=== PATIENT | male | born 1945 | race Caucasian/White ===

== ENCOUNTER 2016-09-04 09:18 | Observation (INO) ==
[2016-09-04] MEDS ORDERED: ONDANSETRON 4 MG/2 ML VIAL IV STA (10:09)
[2016-09-04] MEDS ORDERED: MORPHINE 2 MG/1 ML SYRINGE IV STA (10:09)
[2016-09-04] MEDS ORDERED: NITROGLYCERIN 2% OINT 1 INCH/GM PACK TOP STA (10:09)
[2016-09-04] MEDS ORDERED: SODIUM CHLORIDE 0.9% 500 ML IV STA (10:09)
[2016-09-04] MEDS ORDERED: ALUM/MAG/SIMETH/LIDO VISC 1:1 30 ML BOTTLE PO STA (10:09)
[2016-09-04] MEDS ORDERED: ASPIRIN 325 MG TABLET PO STA (10:09)
--- NOTE | 2016-09-04 10:13 | EKG Report ---
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
[2016-09-04] MEDS ORDERED: ALUM/MAG/SIMETH/LIDO VISC 1:1 30 ML BOTTLE PO ONE (10:17)
[2016-09-04] MEDS ORDERED: NITROGLYCERIN 2% OINT 1 INCH/GM PACK TOP ONE (10:17)
[2016-09-04] MEDS ORDERED: ASPIRIN 325 MG TABLET ONE (10:17)
[2016-09-04] MEDS ORDERED: ONDANSETRON 4 MG/2 ML VIAL ONE (10:17)
[2016-09-04 10:26] LABS: Basophils % 0.3 % (0.0-0.8); Eosinophils % 0.3 % (0.00-10.9); Hematocrit 46.8 VOL% (42.0-52.0); Hemoglobin 15.8 GM/DL (14.0-18.0); Immature Granulocytes % 0.6 %; Immature Granulocytes Absolute 0.04 #; Lymphocytes # 0.5 10*3/uL (1.4-4.0); Mean Corpuscular HGB Conc 33.8 GM/DL (32-36); Mean Corpuscular Hemoglobin 29 PG (27-34); Mean Corpuscular Volume 85.4 FL (87-102); Mean Platelet Volume 10.3 FL (9.6-12.0); Monocytes # 0.4 10*3/uL (0.11-0.8); Monocytes % 6.2 % (1.7-12.7); Neutrophils # 5.5 10*3/uL (1.4-7.4); Neutrophils % 84.6 % (38.7-73.9); Platelet Count 132 T/CUMM (130-400); Red Blood Count 5.48 MC/CUMM (3.8-5.5); Red Cell Distribution Width 12.2 % (9.3-17.3); White Blood Count 6.5 T/CUMM (4-12)
--- NOTE | 2016-09-04 10:32 | XRay Report ---
Referring Physician: Ricky Stahl Exam: XR chest 1V portable Date: September 04, 2016 at 10:19 AM Reason: Chest pain Comparison: None Findings: The cardiac silhouette is upper normal in size, and there is elevation of the right hemidiaphragm. Mild atelectasis is also seen at the right lung base. No pneumothorax or pleural effusion is identified. No acute osseous process is seen. Impression: The right hemidiaphragm is elevated, and there is mild atelectasis at the right lung base. PROCEDURE INTERPRETED AT [facility] DEPARTMENT OF RADIOLOGY Final Report Signed by: Dr. Miles Crisostomo
[2016-09-04 10:34] LABS: INR 1.2; PT Patient Result 12.4 SECS
[2016-09-04 10:51] LABS: Bilirubin,Total 1.3 MG/DL (0.2-1.0); Calcium 8.2 MG/DL (8.5-10.1); Magnesium 1.9 MG/DL (1.8-2.4); Osmolality,Calculated 280.7 MOS/KG (273-304); Potassium 3.9 MMOL/L (3.5-5.1); Total Protein 7.2 G/DL (6.4-8.3)
--- NOTE | 2016-09-04 11:04 | Emergency Department Note ---
Ivette Rivas Gwan, am scribing for, and in the presence of, Ricky Stahl MD 10 :26. Maribeth Rivas Charles R, MD, personally performed the services described in this documentation, ascribed by Snehal Steele in my presence, and it is both accurate and complete . Arrival - Arrival Chief Complaint: Chest Pain Stated Complaint: chest pain & nausea ED Nursing Triage Note: Pt states that he is having midsternal chest pain with SOB and nausea onset last night - pt states that he thinks that he got too hot yesterday while working in his garden Mode of Arrival: Ambulatory Limitations: No Limitations Source: Patient, Significant other, Old Records Reviewed, RN Notes Reviewed Time Seen by Provider: 09/04/16 10:01 - History of Present Illness HPI Narrative: Pt is a 71 y/o male, with a hx of Bronchitis Cyst and Chloecystectomy, who present to the ED for further evaluation of midsternal chest pain and nausea with an onset last night. Patient continued to note that he has also been having a decrease in appetite and fluid intake. He stated that he his chest pain began last night after he began to lay down for bed. Patient then said that when he woke up this morning his chest pain was resolved but he had generalized weakness, nausea and has a APARICIO prompting his visit to the ED for further evaluation. Patient confirmed that his PCP is Dr. Cline in [place], that he had a stress test performed by Dr. Roth that resulted in him receiving a heart cath due to 30% blockage and that he is followed by Dr. Levon Nunez due to prostate problems. He denies any abd pain. No other problems/complaints reported in ED. Onset (ago): hour(s) Consistency: constant Severity: moderate Allergies/Adverse Reactions: Allergies Allergy/AdvReac Type Severity Reaction Status Date / Time IVP DYE Allergy Intermediate ITCHING Uncoded 01/16/16 06:50 Home Medications: Home Medications Medication Instructions Recorded Confirmed Type Ezetimibe [Zetia] 10 mg PO BEDTIME 01/15/16 09/04/16 History Levothyroxine Tab [Synthroid Tab] 88 mcg PO QAM 01/15/16 09/04/16 History Simvastatin 40 mg PO BEDTIME 01/15/16 09/04/16 History Tamsulosin [Flomax] 0.4 mg PO BID 01/15/16 09/04/16 History sitaGLIPtin [Januvia] 50 tablet PO QAM 01/15/16 09/04/16 History Azithromycin 250 mg PO MOWEFR 09/04/16 09/04/16 History Fenofibrate 160 mg PO QPM 09/04/16 09/04/16 History Review of System - Review of System 12 point system: reviewed and no additional remarkable complaints except as stated - Review of System Constitutional: Present: as per HPI, other (decreased appetite; decreased fluid intake ) Eyes: Absent: discharge, pain Head/Ears/Nose/Throat: Absent: earache Respiratory: Absent: cough Cardiovascular: Present: chest pain Gastrointestinal: Present: as per HPI, nausea. 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) Endocrine: History of: Diabetes Mellitus (NIDDM) Respiratory: History of: Respiratory Problems (SOB ABNORMAL CT) Genitourinary: History of: Prostate Problems (BPH) Gastrointestinal: History of: GERD Musculoskeletal: History of: Back/Neck Problems - Surgical History Abdominal Surgeries: Surgical HX of: Abdominal Surgery, Appendectomy, Cholecystectomy, Colonoscopy, EGD Reproductive Surgeries: Surgical HX of;: Genitourinary Surgery, Prostate Surgery - Family History Family History: Reports;: Family Diabetes (2 BROTHERS DAD), Family Stroke (MOM) - Social History Smoking Status: Never smoker Frequency of Alcohol Use: None Type of Drug Use: None Exam Vital Signs: Vital Signs Temperature 98.1 F 09/04/16 10:30 Pulse Rate 92 H 09/04/16 10:30 Respiratory Rate 20 09/04/16 10:30 Blood Pressure 123/74 09/04/16 10:30 O2 Sat by Pulse Oximetry 95 09/04/16 10:30 - General General appearance: alert, in no apparent distress - Head Head exam: Present: atraumatic, normocephalic - Eye Eye exam: Present: normal appearance, PERRL, EOMI - ENT ENT exam: Present: normal oropharynx, mucous membranes moist, TM's normal bilaterally, normal external ear exam - Neck Neck exam: Present: full ROM, trachea midline. Absent: tenderness, meningismus , lymphadenopathy, thyromegaly - Chest Chest inspection: Present: symmetric chest wall rise. Absent: tenderness - Respiratory Respiratory exam: Present: rhonchi (bilaterally) - Cardiovascular Cardiovascular exam: Present: regular rate, normal rhythm, normal heart sounds. Absent: murmur, rubs, gallop - Abdominal Exam Abdominal exam: Present: soft, normal bowel sounds. Absent: distention, tenderness, guarding, rebound - Extremities Exam Extremities exam: Present: full ROM, other (+1 bilateral lower extremties) - Back Exam Back exam: Present: full ROM. Absent: tenderness - Neurological Exam Neurological exam: Present: alert, oriented X3, CN II-XII intact. Absent: motor sensory deficit - Psychiatric Psychiatric exam: Present: normal affect, normal mood - Skin Skin exam: Present: warm, dry, intact, normal color Course - Consultations Consultation #1: Hospitalist will admit patient Time: 11:02 Results - Labs CBC & BMP: 09/04/16 10:09 09/04/16 10:09 Lab Results: I have reviewed the patients labs Labs: Laboratory Tests 09/04/16 09/04/16 09/04/16 10:09 10:09 10:09 WBC 6.5 RBC 5.48 Hgb 15.8 Hct 46.8 MCV 85.4 L Plt Count 132 Neut % (Auto) 84.6 H Lymph % (Auto) 8.0 L Lymph # (Auto) 0.5 L INR PT Patient/Control Mix D-Dimer, Quantitative <= 0.5 Sodium 138 Potassium 3.9 Chloride 106 Carbon Dioxide 24 BUN 24 H Creatinine 1.60 H Glucose 130 H Calcium 8.2 L Total Bilirubin 1.30 H Alkaline Phosphatase 43 L Laboratory Tests 09/04/16 09/04/16 10:09 10:09 INR 1.2 PT Patient/Control Mix 12.4 D-Dimer, Quantitative <= 0.5 - Diagnostic Findings Procedure: Chest x-ray: report reviewed by me (The right hemidiaphragm is elevated and ther is mild atelectasis at the right lung base. ) Disposition Clinical Impression: Chest pain, History of bronchiectasis, Acute dyspnea, Generalized weakness, Renal insufficiency Case discussed with: patient, patient's family Disposition: Still a Patient Condition: Stable Time of Disposition: 11:27
--- NOTE | 2016-09-04 11:30 | CT Report ---
Referring physician: Ricky Stahl Exam: CT brain without contrast Date: 09/04/2016 Comparison: None Reason: Headache Technique: Axial images of the head were obtained without the use of contrast. Total DLP was 1012.10 mGy*cm. Findings: No hydrocephalus or midline shift is present. There is no evidence of an acute infarction, recent intracranial hemorrhage or abnormal mass effect. Diffuse cerebral atrophy. The osseous structures appear intact. The mastoid air cells and visualized paranasal sinuses are clear. Impression: No acute intracranial abnormality is identified. The CT exam was performed using one or more of the following dose reduction techniques: Automated exposure control and adjustment of the mA and/or kV according to patient size. PROCEDURE INTERPRETED AT [facility] DEPARTMENT OF RADIOLOGY Final Report Signed by: Dr. Madeline Brink
--- NOTE | 2016-09-04 12:00 | Hospitalist History & Physical ---
Assessment and Plan (1) Acute dyspnea Status: Acute Assessment and plan: Supplement O2 prn. Current Visit: Yes (2) Chest pain Status: Acute Assessment and plan: Admit to monitored bed. Serial troponins order. EKG order. (Repeat in am) Labs in am. Current Visit: Yes (3) Diabetes Status: Acute Assessment and plan: Accuchecks achs. SSI insulin ordered. Hemoglobin A1c in am. Current Visit: Yes History of Present Illness Chief complaint: chest pain History of present illness: Mr. Agustin is a 71 year old male with a history of bronchiectasis, high cholesterol, diabetes, and prostate problems that presented to the ED on today with complaints of chest pain. The patient states he was home working in his garden for a couple hours yesterday when he got really hot and went inside. Pt stated he had a headache and was nauseated but did not vomit. Pt. reports being tired and having a decrease in appetite. Pt. states that he began to have midsternal chest pain with no radiation when he laid down for bed that evening. His is at the bedside and reports patient being feverish at which point she gave him a Tylenol. Pt said that when he woke up this am, the chest pain was gone but the headache persisted and he was weak. Pt. also adds that Dr. Cline in [place] is his PCP. He goes on to add he was evaluated by Dr. Roth many years ago and told he had a blockage that was 30%. No other complaints at this time. The patient will be admitted for observation. Home Medications Medication Instructions Recorded Confirmed Type Ezetimibe [Zetia] 10 mg PO BEDTIME 01/15/16 09/04/16 History Levothyroxine Tab [Synthroid Tab] 88 mcg PO QAM 01/15/16 09/04/16 History Simvastatin 40 mg PO BEDTIME 01/15/16 09/04/16 History Tamsulosin [Flomax] 0.4 mg PO BID 01/15/16 09/04/16 History sitaGLIPtin [Januvia] 50 tablet PO QAM 01/15/16 09/04/16 History Azithromycin 250 mg PO MOWEFR 09/04/16 09/04/16 History Fenofibrate 160 mg PO QPM 09/04/16 09/04/16 History Allergies Allergy/AdvReac Type Severity Reaction Status Date / Time IVP DYE Allergy Intermediate ITCHING Uncoded 01/16/16 06:50 Medical,Surgical,& Family Hx - Medical History Cardio: Comment Only: 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) Endocrine: History of: Diabetes Mellitus (NIDDM) Respiratory: History of: Respiratory Problems (SOB ABNORMAL CT) Genitourinary: History of: Prostate Problems (BPH) Gastrointestinal: History of: GERD Musculoskeletal: History of: Back/Neck Problems - Surgical History Abdominal Surgeries: Surgical HX of: Abdominal Surgery, Appendectomy, Cholecystectomy, Colonoscopy, EGD Reproductive Surgeries: Surgical HX of;: Genitourinary Surgery, Prostate Surgery - Family History Family History: Reports;: Family Diabetes (2 BROTHERS DAD), Family Stroke (MOM) - Social History Smoking Status: Never smoker Frequency of Alcohol Use: None Type of Drug Use: None - Constitutional Constitutional: Present: fatigue, fever(s) (pt. reports fever but did not take temp), headache(s), weakness - EENT Eyes: Present: blurry vision (last night during chest pain episode) Ears: Absent: decreased hearing Nose, mouth and throat: Present: headache(s) - Cardiovascular Cardiovascular: Present: chest pain at rest, dyspnea on exertion. Absent: edema - Respiratory Respiratory: Present: dyspnea on exertion - Gastrointestinal Gastrointestinal: Present: nausea. Absent: abdominal pain, vomiting - Genitourinary Genitourinary: Present: difficulty urinating - Musculoskeletal Musculoskeletal: Absent: limited range of motion - Neurological Neurological: Present: headache(s). Absent: confusion Exam - Constitutional Vitals: Period Temp Pulse Resp BP Sys/Martinez Pulse Ox Last 24 Hr 98.1 F-98.1 F 66-92 15-20 114-125/65-76 94-95 General appearance: no acute distress - Head Head exam: Present: normal inspection, normocephalic - Eye Eye exam: Present: EOMI. Absent: scleral icterus Pupils: Present: WM - Neck Neck exam: Present: normal inspection - Respiratory Respiratory exam: Present: clear to auscultation bilaterally. Absent: wheezes - Cardiovascular Cardiovascular exam: Present: regular rate and rhythm - GI/Abdominal GI/Abdominal exam: Present: normal bowel sounds, soft. Absent: tenderness - Extremities Exam Extremities exam: Present: normal capillary refill, full ROM. Absent: edema - Neurological Exam Neurological exam: Present: alert, oriented X3, normal gait - Psychiatric Psychiatric exam: Present: normal affect, normal mood - Skin Skin exam: Present: normal color, warm, dry Results - Labs CBC & BMP: 09/04/16 10:09 09/04/16 10:09 Lab Results: I have reviewed the past 24 hour labs - EKG EKG results: interpreted by KATIE, sinus rhythm - Diagnostic Findings Procedure: CT: report reviewed by me (no acute pathology)
--- NOTE | 2016-09-04 13:36 | EKG Report ---
Stationary ECG Study 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
[2016-09-04] MEDS ORDERED: GLUCAGON 1 MG VIAL IM PRN (17:41)
[2016-09-04] MEDS ORDERED: DEXTROSE 50% 25 GM/50 ML VIAL IV PRN (17:41)
[2016-09-04] MEDS ORDERED: DOCUSATE SODIUM 100 MG CAPSULE PO PRN (17:41)
[2016-09-04] MEDS: INSULIN LISPRO 100 UNIT/ML SUBCUT SCH ×2 (18:30→21:35)
[2016-09-04] MEDS ORDERED: FENOFIBRATE 160 MG TABLET PO SCH (19:00)
[2016-09-04] MEDS ORDERED: SIMVASTATIN 40 MG TABLET PO SCH (21:00)
[2016-09-04] MEDS ORDERED: EZETIMIBE 10 MG TABLET PO SCH (21:00)
[2016-09-04] MEDS: TAMSULOSIN 0.4 MG CAPSULE PO SCH (21:34)
[2016-09-04] MEDS ORDERED: ACETAMINOPHEN 325 MG TABLET PO PRN (21:43)
[2016-09-05 05:07] LABS: Basophils % 0.6 % (0.0-0.8); Eosinophils # 0.1 10*3/uL (0.0-0.87); Hematocrit 39.3 VOL% (42.0-52.0); Hemoglobin 13.2 GM/DL (14.0-18.0); Immature Granulocytes % 0.6 %; Immature Granulocytes Absolute 0.03 #; Lymphocytes # 1.1 10*3/uL (1.4-4.0); Lymphocytes % 21.2 % (21.2-54.2); Mean Corpuscular HGB Conc 33.6 GM/DL (32-36); Mean Corpuscular Hemoglobin 29 PG (27-34); Mean Corpuscular Volume 85.8 FL (87-102); Mean Platelet Volume 10.8 FL (9.6-12.0); Monocytes # 0.5 10*3/uL (0.11-0.8); Monocytes % 10.2 % (1.7-12.7); Neutrophils # 3.3 10*3/uL (1.4-7.4); Neutrophils % 65.4 % (38.7-73.9); Platelet Count 119 T/CUMM (130-400); Red Blood Count 4.58 MC/CUMM (3.8-5.5); Red Cell Distribution Width 12.4 % (9.3-17.3)
[2016-09-05 05:47] LABS: Calcium 7.6 MG/DL (8.5-10.1); Potassium 4.3 MMOL/L (3.5-5.1); Risk Ratio 2.74; VLDL CHOLESTEROL 27.6 MG/DL
--- NOTE | 2016-09-05 07:12 | EKG Report ---
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
[2016-09-05] MEDS: INSULIN LISPRO 100 UNIT/ML SUBCUT SCH ×3 (07:42→17:39)
--- NOTE | 2016-09-05 08:19 | Cardiology Consult Note ---
<Ping Sanders - Last Filed: 09/05/16 08:39> Assessment and Plan - Time spent with patient Time spent with patient: Greater than 30 minutes (1) Chest pain Status: Acute Assessment and plan: Troponin has been negative 3. EKG does not reveal any acute findings. Patient is currently chest pain-free. We will continue to cycle cardiac biomarkers and monitor EKG. Will keep patient n.p.o. and further discuss with Dr. Palomo. I will order an echocardiogram. Further plan and addendum to follow per Dr. Palomo. Current Visit: Yes (2) Obesity Status: Chronic Assessment and plan: Counseled patient on the importance of weight loss, regular exercise and dietary restriction. Current Visit: Yes (3) Hyperlipidemia Status: Chronic Assessment and plan: Continue current plan of care with lipid lowering agent. Current Visit: Yes (4) Diabetes Status: Chronic Assessment and plan: Hemoglobin A1c is 6.3. Continue current plan of care. Current Visit: Yes (5) History of bronchiectasis Status: Chronic Current Visit: Yes (6) Renal insufficiency Status: Chronic Assessment and plan: Current creatinine 1.6. This seems to be patient's baseline. December 2015 creatinine of 1.7 noted. Will avoid nephrotoxic medications and monitor with daily BMPs. 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 Roth in the remote past PCP: Dr. Cline [facility] consult note: Chest pain Mr. Agustin is a 71 year old male patient who has been followed by Dr. Roth in the remote past. Patient presented to the ER yesterday with months of chest tightness. He has cardiac risk factors significant for advanced age, diabetes, hyperlipidemia, obesity, sedentary lifestyle and family history of heart disease (brother had MS at age 47 and second brother at age 85) . Patient reports that he is a non-smoker. He has a past medical history of bronchiectasis (wears oxygen every night), gerd and BPH (followed by Dr. Levon Nunez). Patient reports that he saw Dr. Roth approximately 8 years ago. At that time, he underwent stress test and heart catheterization at [facility]. He tells me that he had no intervention done at that time and he had approximately 30-35% stenosis. He has not followed up with cardiology since that time. Patient was in his usual state of health until Thursday afternoon when he began to experience chest tightness and nausea while working in the garden. This was nonradiating. This was associated with shortness of breath, nausea, diaphoresis and headache. He is unable to identify any alleviating or aggravating factors. He denies palpitations/heart racing, dizziness and lightheadedness. He rates this as a 4 out of 10. This lasted approximately 3 hours. He tells me that this went away on its own. The next day, he presented to the ER for further evaluation. Patient was admitted under the hospitalist's service and housed on the telemetry floor. Cardiology has been consulted to further assist in the evaluation of his chest discomfort. Of note, patient does confirm a worsening dyspnea on exertion over the past several months. He tells me that he tends to tire out more easily. He does have chronic dyspnea, however he tells me that he has noticed a decline over the past few months. He denies any previous episodes of chest pain prior to Thursday. He also denies fever, chills, cough, abdominal pain, vomiting, melena , orthopnea, PND and lower extremity swelling. Patient was seen and examined on the telemetry unit. Family was at bedside. Patient is awake and alert and chest pain-free at this time. He tells me that he has not experienced any further chest pain since Thursday evening. He denies shortness of breath and is currently not requiring oxygen. His troponin has been negative 3 and his EKG does not reveal any acute findings. His creatinine is slightly elevated at 1.6, this appears to be his baseline. December 2015 his creatinine was noted to be 1.7. Patient's head CT revealed no acute intracranial abnormality. Patient is currently normal sinus rhythm with heart rates in the 60s without any overt arrhythmias or ectopy noted. Vital signs are stable. Will keep patient n.p.o. and further discuss with Dr. Palomo. Echo has been ordered. Further plan and addendum to follow per Dr. Palomo. CC: Ariana Smith MD - Home Medications and Allergies Home Medications: Home Medications Medication Instructions Recorded Confirmed Type Ezetimibe [Zetia] 10 mg PO BEDTIME 01/15/16 09/04/16 History Levothyroxine Tab [Synthroid Tab] 88 mcg PO AC BREAKFAST 01/15/16 09/04/16 History Simvastatin 40 mg PO BEDTIME 01/15/16 09/04/16 History Tamsulosin [Flomax] 0.4 mg PO BID 01/15/16 09/04/16 History sitaGLIPtin [Januvia] 50 tablet PO QAM 01/15/16 09/04/16 History Azithromycin 250 mg PO MOWEFR 09/04/16 09/04/16 History Fenofibrate 160 mg PO QPM 09/04/16 09/04/16 History Allergies/Adverse Reactions: Allergies Allergy/AdvReac Type Severity Reaction Status Date / Time IVP DYE Allergy Intermediate ITCHING Uncoded 01/16/16 06:50 - Constitutional Constitutional: Present: fatigue, headache(s), weakness. Absent: chills, fever( s), frequent falls, weight gain, weight loss - Cardiovascular Cardiovascular: Present: as per HPI, chest pain with activity, diaphoresis, dyspnea, dyspnea on exertion. Absent: claudication, radiating jaw, neck or arm pain, lightheadedness, orthopnea, palpitations, PND - Respiratory Respiratory: Present: dyspnea, dyspnea on exertion. Absent: cough, hemoptysis, wheezing, snoring, pain on inspiration, change in phlegm color - Gastrointestinal Gastrointestinal: Present: heartburn, nausea. Absent: abdominal pain, change in bowel habits, coffee ground emesis, constipation, cramping, diarrhea, hematemesis, hematochezia, loose stools, melena, vomiting - Neurological Neurological: Present: headache(s). 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) Endocrine: History of: Diabetes Mellitus (NIDDM), Dyslipidemia Respiratory: History of: Respiratory Problems (SOB ABNORMAL CT sleeps with 2 L NC) Genitourinary: History of: Prostate Problems (BPH) Gastrointestinal: History of: GERD, GI Problems (constipation) - Surgical History Cardiac Surgeries: Sugical HX of: Cardiac Catheterization (No stents) Abdominal Surgeries: Surgical HX of: Abdominal Surgery, Appendectomy, Cholecystectomy, Colonoscopy, EGD Reproductive Surgeries: Surgical HX of;: Genitourinary Surgery, Prostate Surgery - Family History Family History: Reports;: Family Cancer, Family Diabetes (2 BROTHERS DAD), Family Heart Disease, Family Hypertension, Family Stroke (MOM) - Social History Smoking Status: Never smoker Frequency of Alcohol Use: None Type of Drug Use: None Physical Examination Vital Signs Temp Pulse Resp BP Pulse Ox 98.1 F 92 H 20 125/76 95 09/04/16 09:27 09/04/16 09:27 09/04/16 09:27 09/04/16 09:27 09/04/16 09:27 General: Present: Appears Well, No Apparent Distress Neck: Present: Supple Neck, Midline Trachea, No JVD/HJR, No Bruit Cardiac: Present: Reg Rate and Rhythm, Regular Rate, Regular Rhythm, S1/S2. Absent: Gallop Lungs: Present: Decreased Breath Sounds, No Wheeze, Rales, Rhonchi. Absent: Oxygen Abdomen: Present: Soft, Active Bowel Sounds, Non-Tender. Absent: Tender, Firm, Distended Skin: Present: Clear. Absent: Rash, Suspicious Lesions Extremities: Present: Normal Gait, No Clubbing, No Cyanosis, No Edema, Normal Upper Extr. Pulses, Normal Lower Extr. Pulses Result/EKG - Labs CBC & BMP: 09/05/16 04:08 09/05/16 04:08 Lab Results: I have reviewed the past 24 hour labs Labs: Laboratory Results - last 24 hr 09/04/16 09/04/16 09/04/16 13:42 17:30 18:13 WBC RBC Hgb Hct MCV MCH MCHC RDW Plt Count MPV Neut % (Auto) Lymph % (Auto) [place] % (Auto) Eos % (Auto) Baso % (Auto) Neut # (Auto) Lymph # (Auto) [place] # (Auto) Eos # (Auto) Baso # (Auto) Immature Gran % Nucleated RBC % Immature Gran # Nucleated RBCs # Sodium Potassium Chloride Carbon Dioxide Anion Gap BUN Creatinine GFR Calculation BUN/Creatinine Ratio Glucose POC Glucose Hemoglobin A1c Calculated Osmolality Calcium Troponin I < 0.015 < 0.015 Triglycerides Cholesterol LDL Cholesterol VLDL Cholesterol HDL Cholesterol Heart Disease Risk Ratio TSH 3rd Generation 1.200 09/04/16 09/05/16 09/05/16 21:32 04:08 04:08 WBC 5.0 RBC 4.58 Hgb 13.2 L D Hct 39.3 L MCV 85.8 L MCH 29 MCHC 33.6 RDW 12.4 Plt Count 119 L MPV 10.8 Neut % (Auto) 65.4 Lymph % (Auto) 21.2 [place] % (Auto) 10.2 Eos % (Auto) 2.0 Baso % (Auto) 0.6 Neut # (Auto) 3.3 Lymph # (Auto) 1.1 L [place] # (Auto) 0.5 Eos # (Auto) 0.1 Baso # (Auto) 0.0 Immature Gran % 0.6 Nucleated RBC % 0.0 Immature Gran # 0.03 Nucleated RBCs # 0.00 Sodium 143 Potassium 4.3 Chloride 110 H Carbon Dioxide 25 Anion Gap 12.3 BUN 22 H Creatinine 1.60 H GFR Calculation 53 BUN/Creatinine Ratio 13.00 Glucose 150 H POC Glucose 140 H Hemoglobin A1c Calculated Osmolality 290.0 Calcium 7.6 L Troponin I Triglycerides 138 Cholesterol 85 LDL Cholesterol 46.0 VLDL Cholesterol 27.6 HDL Cholesterol 31 L Heart Disease Risk Ratio 2.74 TSH 3rd Generation 09/05/16 09/05/16 04:08 07:32 WBC RBC Hgb Hct MCV MCH MCHC RDW Plt Count MPV Neut % (Auto) Lymph % (Auto) [place] % (Auto) Eos % (Auto) Baso % (Auto) Neut # (Auto) Lymph # (Auto) [place] # (Auto) Eos # (Auto) Baso # (Auto) Immature Gran % Nucleated RBC % Immature Gran # Nucleated RBCs # Sodium Potassium Chloride Carbon Dioxide Anion Gap BUN Creatinine GFR Calculation BUN/Creatinine Ratio Glucose POC Glucose 116 H Hemoglobin A1c 6.3 Calculated Osmolality Calcium Troponin I Triglycerides Cholesterol LDL Cholesterol VLDL Cholesterol HDL Cholesterol Heart Disease Risk Ratio TSH 3rd Generation - EKG EKG results: interpreted by me, sinus rhythm <Jorge Palomo - Last Filed: 09/05/16 09:31> History of Present Illness - Consult Narrative History of present illness: Cardiology addendum Patient examined and chart reviewed. 71-year-old man with increased exertional dyspnea for the past 4 days this started after working in his yard. This precipitated chest pain. He did not want to come to the hospital. He had recurrent pain yesterday and his insisted he come to the hospital. Enzymes are negative. EKG shows sinus rhythm ST-T wave changes. Chest x-ray shows a poor inspiration effort with markedly elevated right hemidiaphragm. Patient has bronchiectasis that is followed by Dr. Quesada. He does take antibiotic suppressive therapy. he denies fever chills or sputum production at this time. Type II diabetic taking Januvia 100 mg daily. hypercholesterolemia taking simvastatin 40 mg daily. 5 feet 10 inches tall, 218 pounds. Lifetime non- smoker. Rare social drinker only. Hemoglobin A1c of 6.3. Strong family history CAD. His brother is 82 and had bypass surgery twice. Another brother is 88 and had bypass surgery. The patient does have GE reflux symptoms and takes Prilosec daily. Patient states that this pain was completely different from his usual reflux. Potassium 4.3 BUN 22 creatinine 1.60 hemoglobin 13.2 INR 1.1. Patient had cardiac cath [address] Roth at [facility] had a 30-4o% stenosis in unknown vessel. Impression Progressive dyspnea and angina. Multiple risk factors. disease progression suspected Plan Begin normal saline hydration. Cardiac cath. Procedure, risk benefits reviewed with patient and his . All questions answered. He agrees to proceed as outlined. CC: Ariana Smith MD Physical Examination Vital Signs Temp Pulse Resp BP Pulse Ox 98.1 F 92 H 20 125/76 95 09/04/16 09:27 09/04/16 09:27 09/04/16 09:27 09/04/16 09:27 09/04/16 09:27 Result/EKG - Labs CBC & BMP: 09/05/16 04:08 09/05/16 04:08 Labs: Laboratory Results - last 24 hr 09/04/16 09/04/16 09/04/16 13:42 17:30 18:13 WBC RBC Hgb Hct MCV MCH MCHC RDW Plt Count MPV Neut % (Auto) Lymph % (Auto) [place] % (Auto) Eos % (Auto) Baso % (Auto) Neut # (Auto) Lymph # (Auto) [place] # (Auto) Eos # (Auto) Baso # (Auto) Immature Gran % Nucleated RBC % Immature Gran # Nucleated RBCs # Sodium Potassium Chloride Carbon Dioxide Anion Gap BUN Creatinine GFR Calculation BUN/Creatinine Ratio Glucose POC Glucose Hemoglobin A1c Calculated Osmolality Calcium Troponin I < 0.015 < 0.015 Triglycerides Cholesterol LDL Cholesterol VLDL Cholesterol HDL Cholesterol Heart Disease Risk Ratio TSH 3rd Generation 1.200 09/04/16 09/05/16 09/05/16 21:32 04:08 04:08 WBC 5.0 RBC 4.58 Hgb 13.2 L D Hct 39.3 L MCV 85.8 L MCH 29 MCHC 33.6 RDW 12.4 Plt Count 119 L MPV 10.8 Neut % (Auto) 65.4 Lymph % (Auto) 21.2 [place] % (Auto) 10.2 Eos % (Auto) 2.0 Baso % (Auto) 0.6 Neut # (Auto) 3.3 Lymph # (Auto) 1.1 L [place] # (Auto) 0.5 Eos # (Auto) 0.1 Baso # (Auto) 0.0 Immature Gran % 0.6 Nucleated RBC % 0.0 Immature Gran # 0.03 Nucleated RBCs # 0.00 Sodium 143 Potassium 4.3 Chloride 110 H Carbon Dioxide 25 Anion Gap 12.3 BUN 22 H Creatinine 1.60 H GFR Calculation 53 BUN/Creatinine Ratio 13.00 Glucose 150 H POC Glucose 140 H Hemoglobin A1c Calculated Osmolality 290.0 Calcium 7.6 L Troponin I Triglycerides 138 Cholesterol 85 LDL Cholesterol 46.0 VLDL Cholesterol 27.6 HDL Cholesterol 31 L Heart Disease Risk Ratio 2.74 TSH 3rd Generation 09/05/16 09/05/16 04:08 07:32 WBC RBC Hgb Hct MCV MCH MCHC RDW Plt Count MPV Neut % (Auto) Lymph % (Auto) [place] % (Auto) Eos % (Auto) Baso % (Auto) Neut # (Auto) Lymph # (Auto) [place] # (Auto) Eos # (Auto) Baso # (Auto) Immature Gran % Nucleated RBC % Immature Gran # Nucleated RBCs # Sodium Potassium Chloride Carbon Dioxide Anion Gap BUN Creatinine GFR Calculation BUN/Creatinine Ratio Glucose POC Glucose 116 H Hemoglobin A1c 6.3 Calculated Osmolality Calcium Troponin I Triglycerides Cholesterol LDL Cholesterol VLDL Cholesterol HDL Cholesterol Heart Disease Risk Ratio TSH 3rd Generation
[2016-09-05] MEDS ORDERED: LEVOTHYROXINE 88 MCG TABLET PO SCH (09:00)
[2016-09-05 09:30] LABS: Troponin I Only < 0.015 NG/ML (0.00-0.045)
[2016-09-05] MEDS ORDERED: MAGNESIUM SULF RIDER 2 GM in PREMIX 1 EACH IV PRN (09:32)
[2016-09-05] MEDS ORDERED: POTASSIUM CHLORIDE RIDER 10 MEQ in PREMIX 1 EACH IV PRN (09:32)
--- NOTE | 2016-09-05 09:32 | History and Physical Update ---
Sedation H&P Update - History and Physical H&P was reviewed, the patient examined and there: are no changes in the patients condition since last H&P was completed. - Dictation Physical: refer to H&P completed by admitting physician - Physical Exam Mental Status: alert and oriented Heart: regular rate and rhythm Lung: clear to auscultation Abdomen: within normal limits Vitals: within normal limits - Sedation Plan for Sedation: moderate ASA Class: II Airway Assessment: Class II: Soft palate, uvula, fauces visible
[2016-09-05] MEDS: SODIUM CHLORIDE 0.9% 1,000 ML IV SCH ×2 (09:40→17:53)
[2016-09-05] MEDS: TAMSULOSIN 0.4 MG CAPSULE PO SCH (09:50)
[2016-09-05] MEDS ORDERED: PANTOPRAZOLE 40 MG VIAL IV ONE (11:21)
[2016-09-05] MEDS ORDERED: diphenhydrAMINE 50 MG/1 ML VIAL IV ONE (11:21)
[2016-09-05] MEDS ORDERED: diphenhydrAMINE 50 MG/1 ML VIAL ONE (11:24)
[2016-09-05] MEDS ORDERED: HEPARIN/NACL 0.9% 2 UNITS/ML 1,000 ML IV ONE (11:34)
[2016-09-05] MEDS ORDERED: LIDOCAINE 1% 20 ML VIAL ONE (11:34)
[2016-09-05] MEDS ORDERED: HYDROmorphone 2 MG/1 ML VIAL ONE (12:50)
[2016-09-05] MEDS ORDERED: MIDAZOLAM 2 MG/2 ML VIAL ONE (12:50)
[2016-09-05] MEDS ORDERED: methylPREDNISolone SOD SUC 125 MG/2 ML VIAL ONE (12:52)
[2016-09-05] MEDS ORDERED: VERAPAMIL 5 MG/2 ML VIAL ONE (12:58)
[2016-09-05] MEDS ORDERED: NITROGLYCERIN DRIP 50 MG/250 ML BOTTLE IV ONE (12:58)
[2016-09-05] MEDS ORDERED: ENOXAPARIN 60 MG/0.6 ML SYRINGE ONE (13:14)
[2016-09-05] MEDS ORDERED: SODIUM CHLORIDE 0.9% 1,000 ML IV SCH (14:00)
--- NOTE | 2016-09-05 14:06 | Cardiac Catheterization ---
Date of Procedure:: 09/05/16 Procedure: CLINICAL HISTORY: The patient presented with symptoms concerning for angina. He has a history of mild nonobstructive coronary artery disease in the past is now undergoing cardiac catheterization for definitive coronary artery assessment and possible revascularization. PROCEDURES PERFORMED: 1. Right radial percutaneous arteriotomy 2. Left heart catheterization 3. Resting hemodynamics 4. Left ventriculography. 5. Coronary arteriography 6. Hemoband placement 7. Right brachiocephalic arteriogram DESCRIPTION OF PROCEDURE: After obtaining informed consent, the patient was taken to the cardiac catheterization technician, prepped and draped in the usual sterile manner. We accessed the right radial artery using modified Seldinger technique in the usual fashion. We placed a 6-Swazi slim sheath without difficulty. We attempted to use a cane catheter for diagnostics, but this catheter would not engage the coronaries. We ended up using a a car a left 3.5 interventional guide to engage the left coronary system and a AR 2 diagnostic catheter to engage the right coronary system to perform coronary angiography. No significant coronary artery disease was seen. There were no problems or complications during the procedure. We then used an angled pigtail catheter to perform a left heart catheterization with left ventriculogram and pressure measurement in the usual fashion. After removing the catheter, we placed a HemoBand and removed the sheath without difficulty. There were no problems during the case. HEMODYNAMICS: Please see the accompanying data sheet. CORONARIES: The left main coronary artery is a large-caliber vessel which trifurcates into the left anterior descending left circumflex and ramus intermedius branches. The left main coronary artery is angiographically free of significant obstructive disease. The left circumflex coronary artery is a moderate size vessel which gives off a moderate-sized obtuse marginal and a moderate-sized posterolateral branch. The left circumflex was coronary artery and its tributaries are angiographically free of significant obstructive disease. The left anterior descending is a large-caliber vessel which gives off a moderate size first diagonal branch and a couple of smaller diagonal branches towards its distal segment. There along area of mild nonobstructive disease of up to 30-40% in the midportion of the vessel with some mild myocardial bridging in this location. The right coronary artery is a moderate size vessel which gives off posterior descending artery. The right coronary artery is angiographically free of significant obstructive disease. The left brachiocephalic artery is normal in appearance. LEFT VENTRICULOGRAPHY: Left ventriculogram shows left ventricular ejection fraction of approximately 60-65% with normal regional wall motion. IMPRESSION: 1. Mild nonobstructive coronary artery disease with some bridging in the mid left anterior descending coronary artery. 2. Normal left ventricular systolic function. PLAN: I don't see any significant obstructive disease at this time. I think the patient can be managed conservatively with risk factor modification and medical management. If he is doing well he should be able to be discharged home later this afternoon. Anesthesia: minimal conscious sedation Surgeon / Physician: Federico Hidalgo Estimated blood loss: minimal Condition: stable Disposition: floor - Medications / Follow-up
--- NOTE | 2016-09-05 14:07 | Hospitalist Progress Note ---
Assessment and Plan - Time spent with patient Time spent with patient: Greater than 30 minutes (1) Chest pain Status: Acute Assessment and plan: Heart cath today. Current Visit: Yes (2) Diabetes Status: Chronic Assessment and plan: Continue current management. Current Visit: Yes Hospitalist: Subjective Interval history: Scheduled for heart cath today. No complaints or overnight events. Exam - Constitutional Vitals: Period Temp Pulse Resp BP Sys/Martinez Pulse Ox Last 24 Hr 97 F-98.8 F 60-75 15-20 89-120/47-70 90-96 General appearance: no acute distress - Head Head exam: Present: normocephalic, atraumatic - Eye Eye exam: Present: EOMI Pupils: Present: WM - ENT ENT exam: Present: normal exam - Neck Neck exam: Present: normal inspection - Respiratory Respiratory exam: Present: clear to auscultation bilaterally. Absent: rhonchi, wheezes - Cardiovascular Cardiovascular exam: Present: regular rate and rhythm. Absent: gallop, rubs, systolic murmur - GI/Abdominal GI/Abdominal exam: Present: normal bowel sounds, soft. Absent: distended, firm , guarding, tenderness, rebound - Extremities Exam Extremities exam: Present: normal inspection. Absent: calf tenderness, edema Results - Labs CBC & BMP: 09/05/16 04:08 09/05/16 04:08 Lab Results: I have reviewed the past 24 hour labs
--- NOTE | 2016-09-05 14:17 | ECHO Report ---
Ryan Agustin Exam Date: 09/05/2016 09:46 Referring Physician: Technologist: Annia Cristina Age: 71 Ht (in): 70 Wt (lb): 214 Gender: M Exam Location: [facility] Echo Indications: diabetes, chest pain, bronchitis, acute dyspnea, weakness, renal insuff. BP: 120 / 65 HR: 64 Rhythm: Sinus Technical Quality: Fair IMPRESSIONS EF 55-60 %. Septal hypokinesis. Grade I/IV diastolic dysfunction (abnormal relaxation filling pattern), normal to mildly elevated filling pressures. Mildly increased right ventricular size. The right atrium is mildly enlarged. The left atrium is mildly enlarged. Morphologically normal mitral valve. No mitral valve regurgitation. Aortic valve sclerosis. No aortic valve regurgitation. [id number] tricuspid valve regurgitation. [id number]. Pulmonic valve not well visualized. No pericardial effusion. Normal size aortic root and proximal ascending aorta. MEASUREMENTS (Male / Female) Normal Values 2D ECHO LV Diastolic Diameter PLAX 4.0 cm 4.2 - 5.9 / 3.9 - 5.3 cm LV Systolic Diameter PLAX 1.9 cm LV Fractional Shortening PLAX 53.3 % IVS Diastolic Thickness 1.2 cm 0.6 - 1.0 / 0.6 - 0.9 cm LVPW Diastolic Thickness 1.4 cm 0.6 - 1.0 / 0.6 - 0.9 cm RV Internal Dim ED PLAX 3.4 cm Aortic Root Diameter 2.9 cm LA Systolic Diameter LX 3.6 cm 3.0 - 4.0 / 2.7 - 3.8 cm DOPPLER TR Peak Velocity 228.0 cm/s TR Peak Gradient 20.8 mmHg FINDINGS Left Ventricle EF 55-60 %.Septal hypokinesis. Grade I/IV diastolic dysfunction (abnormal relaxation filling pattern), normal to mildly elevated filling pressures. Right Ventricle Mildly increased right ventricular size. Right Atrium The right atrium is mildly enlarged. Left Atrium The left atrium is mildly enlarged. Mitral Valve Morphologically normal mitral valve. No mitral valve regurgitation. . Aortic Valve Aortic valve sclerosis. No aortic valve regurgitation. Tricuspid Valve [id number] tricuspid valve regurgitation. [id number]. Pulmonic Valve Pulmonic valve not well visualized. Pericardium No pericardial effusion. Aorta Normal size aortic root and proximal ascending aorta. Rik Palomo (Electronically Signed) Final Date: 05 September 2016 14:16
--- NOTE | 2016-09-05 17:16 | Discharge Summary ---
Hospital Course - Hospital Course Hospital Course: Ms. Agustin was admitted for evaluation of chest pain. Troponins were obtained serially and negative. Echocardiogram with grade 1 out of 4 diastolic dysfunction with septal hypokinesis. Ejection fraction 55-60%. Cardiology was consulted who performed a left heart cath. This showed mild nonobstructive disease and recommendations were to continue medical management. By discharge patient had met maximum benefit of hospitalization. I spent 38 minutes to coordinating this discharge. - Time spent with patient Time with patient DS: Greater than 30 minutes Diagnosis - Discharge Diagnosis (1) Chest pain Status: Acute (2) Diabetes Status: Chronic Discharge Plan - Discharge Data Disposition: Disch To Home/Self Care Condition at Discharge: Stable Discharge Diet: advance to your usual diet Activity: resume usual activities as tolerated Hygiene: no restrictions - Discharge Medications Continue Levothyroxine Tab [Synthroid Tab] 88 mcg PO AC BREAKFAST Simvastatin 40 mg PO BEDTIME Ezetimibe [Zetia] 10 mg PO BEDTIME Tamsulosin [Flomax] 0.4 mg PO BID sitaGLIPtin [Januvia] 50 tablet PO QAM Fenofibrate 160 mg PO QPM Discontinued Azithromycin 250 mg PO MOWEFR - Follow Up or Referral - Forms/Instructions Exam - Constitutional Vitals: Period Temp Pulse Resp BP Sys/Martinez Pulse Ox Last 24 Hr 97 F-98.8 F 64-73 18-20 90-120/47-70 90-98 General appearance: normal weight, no acute distress - Head Head exam: Present: normal inspection, normocephalic, atraumatic - Eye Eye exam: Present: EOMI Pupils: Present: WM - ENT ENT exam: Present: normal exam - Neck Neck exam: Present: normal inspection - Respiratory Respiratory exam: Present: clear to auscultation bilaterally - Cardiovascular Cardiovascular exam: Present: regular rate and rhythm. Absent: bradycardia, irregular rhythm, systolic murmur - GI/Abdominal GI/Abdominal exam: Present: normal bowel sounds - Extremities Exam Extremities exam: Present: normal inspection Discharge Results Procedures and tests throughout hospitalization: Pending Orders 09/05/16 09:37 CL heart Routine Labs on day of discharge: Labs from last 24 hours 09/05/16 09/05/16 09/05/16 15:52 11:15 08:45 WBC RBC Hgb Hct MCV MCH MCHC RDW Plt Count MPV Neut % (Auto) Lymph % (Auto) Christian % (Auto) Eos % (Auto) Baso % (Auto) Neut # (Auto) Lymph # (Auto) Christian # (Auto) Eos # (Auto) Baso # (Auto) Immature Gran % Nucleated RBC % Immature Gran # Nucleated RBCs # Sodium Potassium Chloride Carbon Dioxide Anion Gap BUN Creatinine GFR Calculation BUN/Creatinine Ratio Glucose POC Glucose 144 H 109 H Hemoglobin A1c Calculated Osmolality Calcium Total Creatine Kinase 129 CK-MB (CK-2) 1.0 Troponin I < 0.015 Triglycerides Cholesterol LDL Cholesterol VLDL Cholesterol HDL Cholesterol Heart Disease Risk Ratio [facility] 3rd Generation 09/05/16 09/05/16 09/05/16 07:32 04:08 04:08 WBC RBC Hgb Hct MCV MCH MCHC RDW Plt Count MPV Neut % (Auto) Lymph % (Auto) Christian % (Auto) Eos % (Auto) Baso % (Auto) Neut # (Auto) Lymph # (Auto) Christian # (Auto) Eos # (Auto) Baso # (Auto) Immature Gran % Nucleated RBC % Immature Gran # Nucleated RBCs # Sodium 143 Potassium 4.3 Chloride 110 H Carbon Dioxide 25 Anion Gap 12.3 BUN 22 H Creatinine 1.60 H GFR Calculation 53 BUN/Creatinine Ratio 13.00 Glucose 150 H POC Glucose 116 H Hemoglobin A1c 6.3 Calculated Osmolality 290.0 Calcium 7.6 L Total Creatine Kinase CK-MB (CK-2) Troponin I Triglycerides 138 Cholesterol 85 LDL Cholesterol 46.0 VLDL Cholesterol 27.6 HDL Cholesterol 31 L Heart Disease Risk Ratio 2.74 [facility] 3rd Generation 09/05/16 09/04/16 09/04/16 04:08 21:32 18:13 WBC 5.0 RBC 4.58 Hgb 13.2 L D Hct 39.3 L MCV 85.8 L MCH 29 MCHC 33.6 RDW 12.4 Plt Count 119 L MPV 10.8 Neut % (Auto) 65.4 Lymph % (Auto) 21.2 Christian % (Auto) 10.2 Eos % (Auto) 2.0 Baso % (Auto) 0.6 Neut # (Auto) 3.3 Lymph # (Auto) 1.1 L Christian # (Auto) 0.5 Eos # (Auto) 0.1 Baso # (Auto) 0.0 Immature Gran % 0.6 Nucleated RBC % 0.0 Immature Gran # 0.03 Nucleated RBCs # 0.00 Sodium Potassium Chloride Carbon Dioxide Anion Gap BUN Creatinine GFR Calculation BUN/Creatinine Ratio Glucose POC Glucose 140 H Hemoglobin A1c Calculated Osmolality Calcium Total Creatine Kinase CK-MB (CK-2) Troponin I Triglycerides Cholesterol LDL Cholesterol VLDL Cholesterol HDL Cholesterol Heart Disease Risk Ratio TSH 3rd Generation 1.200 09/04/16 17:30 WBC RBC Hgb Hct MCV MCH MCHC RDW Plt Count MPV Neut % (Auto) Lymph % (Auto) Christian % (Auto) Eos % (Auto) Baso % (Auto) Neut # (Auto) Lymph # (Auto) Christian # (Auto) Eos # (Auto) Baso # (Auto) Immature Gran % Nucleated RBC % Immature Gran # Nucleated RBCs # Sodium Potassium Chloride Carbon Dioxide Anion Gap BUN Creatinine GFR Calculation BUN/Creatinine Ratio Glucose POC Glucose Hemoglobin A1c Calculated Osmolality Calcium Total Creatine Kinase CK-MB (CK-2) Troponin I < 0.015 Triglycerides Cholesterol LDL Cholesterol VLDL Cholesterol HDL Cholesterol Heart Disease Risk Ratio TSH 3rd Generation DS: Provider Date of admission: 09/04/16 11:10 Primary care physician: . No PCP Attending physician on admission: Ariana Smith MD Consults: 09/04/16 12:37 Consult to Physician [CONS] Routine Comment: chest pain Consulting Provider: Cardiology - [facility] Consult to Specialist Group: Cardiology When should Consulting Provider be notified: Now 09/04/16 17:50 Consult to Pharmacy [CONS] Routine Reason for Pharmacy Consult: Adjust Meds Renal Funct Discharging clinician: Ariana Smith MD Expected date of discharge: 09/05/16
[2016-09-05 19:00] VITALS: BP 105/68
== END 2016-09-05 18:41 | disposition home or self-care (01) ==
LOC: N.EDINP 09:18 → N.ED 09:18 → N.EDINP 16:55 → N.TELES 17:19
PROVIDERS: ADMIT Internal Medicine; ATTEND Internal Medicine
PROC: CLCCHCL (ICD-10-PCS; 2016-09-05 13:45)

== ENCOUNTER 2019-03-30 18:30 | Inpatient (IN) ==
[2019-03-30] MEDS ORDERED: ALBUTEROL/IPRATROPIUM 3 ML NEB RESP TX STA (19:33)
[2019-03-30] MEDS ORDERED: VANCOMYCIN INJ 1,250 MG in SODIUM CHLORIDE 0.9% 250 ML IV STA (19:33)
[2019-03-30] MEDS ORDERED: SODIUM CHLORIDE 0.9% 1,000 ML IV STA ×2 (19:33→20:46)
[2019-03-30] MEDS ORDERED: ACETAMINOPHEN 500 MG TABLET ONE (19:58)
[2019-03-30 19:59] LABS: Basophils # 0.1 10*3/uL (0.0-0.2); Basophils % 0.5 % (0.0-0.8); Eosinophils # 0.1 10*3/uL (0.0-0.87); Eosinophils % 0.6 % (0.00-10.9); Hematocrit 43.9 VOL% (42.0-52.0); Immature Granulocytes % 0.7 %; Immature Granulocytes Absolute 0.08 #; Lymphocytes # 0.6 10*3/uL (1.4-4.0); Lymphocytes % 4.8 % (21.2-54.2); Mean Corpuscular HGB Conc 34.2 GM/DL (32-36); Mean Corpuscular Volume 86.9 FL (87-102); Monocytes % 7.5 % (1.7-12.7); Neutrophils % 85.9 % (38.7-73.9); Platelet Count 134 T/CUMM (130-400); Red Blood Count 5.05 MC/CUMM (3.8-5.5); Red Cell Distribution Width 12.3 % (9.3-17.3); White Blood Count 11.9 T/CUMM (4-12)
[2019-03-30 20:11] LABS: INR 1.1; PT Patient Result 12.1 SECS (9.6-12.2)
[2019-03-30] MEDS ORDERED: ACETAMINOPHEN 500 MG TABLET PO STA (20:14)
[2019-03-30 20:18] LABS: Alanine Aminotransferase 20 U/L (16-61); Albumin 3.8 G/DL (3.4-5.0); Alkaline Phosphatase 50 U/L (45-117); Amylase 38 U/L (25-115); Aspartate Amino Transferase 22 U/L (0-37); Blood Urea Nitrogen 24 MG/DL (7-18); Calcium 8.9 MG/DL (8.5-10.1); Estimated Glom Filtration Rate 31 ML/MIN; Glucose 159 MG/DL (74-106); Osmolality,Calculated 274.2 MOS/KG (273-304); Total Protein 7.5 G/DL (6.4-8.3); Troponin I < 0.015 NG/ML (0.00-0.045)
[2019-03-30 20:23] LABS: Eosinophils 3 % (0-10); Lymphocytes 6 % (20-55); Platelet Estimate Adequate; Reactive Lymphocytes Few; Segmented Neutrophils 85 % (50-85); Total Cells Counted 100
[2019-03-30 20:27] LABS: Apearance,Urine CLEAR (Clear); Bilirubin,Urine Negative (Negative); Blood, Urine Small mg/dL (Negative); Glucose,Urine (UA) Negative (Negative); Ketones,Urine 20 mg/dL (Negative); Mucus,Urine Occasional /LPF (Occasional); Nitrite,Urine Negative (Negative); Protein,Urine Negative; RBC,Urine 3 /HPF (0-4); Urine Color Yellow (Yellow); Urine Specific Gravity 1.017 (1.001-1.035); Urine Urobilinogen < 2.0 EU/DL (0.2-1.0); WBC,Urine 1 /HPF (0-6)
[2019-03-30] MEDS ORDERED: methylPREDNISolone SOD SUC 125 MG/2 ML VIAL IV STA (21:05)
[2019-03-30] MEDS ORDERED: LEVOFLOXACIN INJ 750 MG in PREMIX 1 EACH IV STA (21:05)
[2019-03-30] MEDS ORDERED: ALBUTEROL NEB SOLN 5 MG/ML 20 ML/BOTTLE CONT NEB STA (21:05)
[2019-03-30] MEDS ORDERED: Linaclotide [Linzess] 72 MCG PO PRN (22:13)
[2019-03-30] MEDS ORDERED: ONDANSETRON 4 MG TABLET PO PRN (22:13)
[2019-03-30] MEDS ORDERED: AZITHROMYCIN 250 MG TABLET PO SCH (22:30)
[2019-03-30] MEDS ORDERED: DEXTROSE 50% 25 GM/50 ML VIAL IV PRN (23:22)
[2019-03-30] MEDS ORDERED: GLUCAGON 1 MG VIAL IM PRN (23:22)
[2019-03-31] MEDS: HYDROmorphone 2 MG TABLET PO SCH ×5 (00:27→22:21)
[2019-03-31] MEDS: INSULIN REGULAR 100 UNIT/ML SUBCUT SCH ×5 (00:32→21:37)
[2019-03-31] MEDS: SODIUM CHLORIDE 0.9% 1,000 ML IV SCH ×3 (00:33→19:24)
[2019-03-31] MEDS: ALBUTEROL/IPRATROPIUM 3 ML NEB RESP TX SCH ×4 (02:25→19:40)
[2019-03-31] MEDS: LEVOTHYROXINE 88 MCG TABLET PO SCH (05:47)
[2019-03-31 07:42] LABS: Basophils % 0.1 % (0.0-0.8); Hematocrit 38.4 VOL% (42.0-52.0); Hemoglobin 12.8 GM/DL (14.0-18.0); Immature Granulocytes % 0.6 %; Immature Granulocytes Absolute 0.06 #; Lymphocytes # 0.3 10*3/uL (1.4-4.0); Lymphocytes % 3.4 % (21.2-54.2); Mean Corpuscular HGB Conc 33.3 GM/DL (32-36); Mean Corpuscular Volume 87.3 FL (87-102); Mean Platelet Volume 10.4 FL (9.6-12.0); Monocytes % 2.9 % (1.7-12.7); Platelet Count 97 T/CUMM (130-400); White Blood Count 9.8 T/CUMM (4-12)
[2019-03-31 08:02] LABS: Albumin 3.2 G/DL (3.4-5.0); Bilirubin,Total 0.6 MG/DL (0.2-1.0); Calcium 8.2 MG/DL (8.5-10.1); Osmolality,Calculated 294.4 MOS/KG (273-304); Total Protein 6.5 G/DL (6.4-8.3)
[2019-03-31 08:03] LABS: Anisocytosis Slight; Band Neutrophils 6 % (0-10); Lymphocytes 6 % (20-55); Platelet Estimate Decreased; Segmented Neutrophils 83 % (50-85); Total Cells Counted 100
[2019-03-31 08:04] LABS: Burr Cells Few
[2019-03-31] MEDS: DUTASTERIDE 0.5 MG CAPSULE PO SCH (09:24)
[2019-03-31] MEDS: PANTOPRAZOLE 40 MG TABLET PO SCH (09:24)
[2019-03-31] MEDS: TAMSULOSIN 0.4 MG CAPSULE PO SCH (09:24)
[2019-03-31] MEDS: CHOLECALCIFEROL 1,000 UNIT TABLET PO SCH (09:24)
[2019-03-31] MEDS: ACETAMINOPHEN 325 MG TABLET PO PRN (09:27)
[2019-03-31] MEDS: PSYLLIUM POWDER 3.7 GM/PACK PO PRN (12:09)
[2019-03-31] MEDS: ENOXAPARIN 30 MG/0.3 ML SYRINGE SUBCUT SCH (16:53)
[2019-03-31] MEDS: SIMVASTATIN 40 MG TABLET PO SCH (22:21)
[2019-04-01] MEDS: ALBUTEROL/IPRATROPIUM 3 ML NEB RESP TX SCH ×4 (01:00→21:10)
[2019-04-01] MEDS: SODIUM CHLORIDE 0.9% 1,000 ML IV SCH ×2 (05:26→15:34)
[2019-04-01] MEDS: HYDROmorphone 2 MG TABLET PO SCH ×4 (05:40→22:40)
[2019-04-01] MEDS: LEVOTHYROXINE 88 MCG TABLET PO SCH (05:40)
[2019-04-01] MEDS: INSULIN REGULAR 100 UNIT/ML SUBCUT SCH ×5 (08:00→21:34)
[2019-04-01] MEDS: DUTASTERIDE 0.5 MG CAPSULE PO SCH (08:04)
[2019-04-01] MEDS: AZITHROMYCIN 250 MG TABLET PO SCH (08:04)
[2019-04-01] MEDS: TAMSULOSIN 0.4 MG CAPSULE PO SCH (08:05)
[2019-04-01] MEDS: PANTOPRAZOLE 40 MG TABLET PO SCH (08:05)
[2019-04-01] MEDS: CHOLECALCIFEROL 1,000 UNIT TABLET PO SCH (08:05)
[2019-04-01 08:51] LABS: Calcium 7.8 MG/DL (8.5-10.1); Osmolality,Calculated 288.4 MOS/KG (273-304)
[2019-04-01] MEDS: LINACLOTIDE 145 MCG CAPSULE PO SCH (10:10)
[2019-04-01] MEDS: PROMETHAZINE 25 MG TABLET PO PRN (13:15)
[2019-04-01] MEDS: ENOXAPARIN 30 MG/0.3 ML SYRINGE SUBCUT SCH (16:13)
[2019-04-01] MEDS: PSYLLIUM POWDER 3.7 GM/PACK PO PRN (21:18)
[2019-04-01] MEDS: SIMVASTATIN 40 MG TABLET PO SCH (21:18)
[2019-04-01] MEDS: LEVOFLOXACIN INJ 750 MG in PREMIX 1 EACH IV SCH (21:18)
[2019-04-01] MEDS: ACETAMINOPHEN 325 MG TABLET PO PRN (21:18)
[2019-04-01] MEDS ORDERED: PHENOL 1.4% THROAT SPRAY 177 ML BOTTLE PO PRN (23:00)
[2019-04-02] MEDS: ALBUTEROL/IPRATROPIUM 3 ML NEB RESP TX SCH ×5 (01:11→19:14)
[2019-04-02] MEDS: SODIUM CHLORIDE 0.9% 1,000 ML IV SCH ×2 (02:19→20:02)
[2019-04-02] MEDS: HYDROmorphone 2 MG TABLET PO SCH ×4 (05:31→23:46)
[2019-04-02] MEDS: LEVOTHYROXINE 88 MCG TABLET PO SCH (05:32)
[2019-04-02 06:30] LABS: Osmolality,Calculated 286.3 MOS/KG (273-304)
[2019-04-02] MEDS: TAMSULOSIN 0.4 MG CAPSULE PO SCH ×2 (08:08→20:01)
[2019-04-02] MEDS: DUTASTERIDE 0.5 MG CAPSULE PO SCH (08:08)
[2019-04-02] MEDS: CHOLECALCIFEROL 1,000 UNIT TABLET PO SCH (08:08)
[2019-04-02] MEDS: PANTOPRAZOLE 40 MG TABLET PO SCH (08:08)
[2019-04-02] MEDS: LINACLOTIDE 145 MCG CAPSULE PO SCH (08:09)
[2019-04-02] MEDS: INSULIN REGULAR 100 UNIT/ML SUBCUT SCH ×4 (08:09→21:35)
[2019-04-02] MEDS ORDERED: BISACODYL 10 MG SUPP RECTAL ONE (10:02)
[2019-04-02] MEDS ORDERED: MAGNESIUM CITRATE 300 ML BOTTLE PO ONE (13:13)
[2019-04-02] MEDS: ENOXAPARIN 30 MG/0.3 ML SYRINGE SUBCUT SCH (16:51)
[2019-04-02] MEDS ORDERED: SODIUM PHOSPHATE ENEMA 133 ML BOTTLE RECTAL ONE ×2 (16:52)
[2019-04-02] MEDS: ACETAMINOPHEN 325 MG TABLET PO PRN (19:59)
[2019-04-02] MEDS: SIMVASTATIN 40 MG TABLET PO SCH (20:01)
[2019-04-03] MEDS: ALBUTEROL/IPRATROPIUM 3 ML NEB RESP TX SCH ×4 (00:29→19:56)
[2019-04-03] MEDS: SODIUM CHLORIDE 0.9% 1,000 ML IV SCH ×2 (05:19→21:57)
[2019-04-03] MEDS: HYDROmorphone 2 MG TABLET PO SCH ×5 (05:19→23:23)
[2019-04-03] MEDS: LEVOTHYROXINE 88 MCG TABLET PO SCH (05:19)
[2019-04-03 05:35] LABS: Basophils # 0.1 10*3/uL (0.0-0.2); Basophils % 0.6 % (0.0-0.8); Eosinophils # 0.2 10*3/uL (0.0-0.87); Eosinophils % 2.5 % (0.00-10.9); Hemoglobin 11.3 GM/DL (14.0-18.0); Immature Granulocytes % 1.5 %; Immature Granulocytes Absolute 0.12 #; Lymphocytes % 13.1 % (21.2-54.2); Mean Corpuscular HGB Conc 33.2 GM/DL (32-36); Mean Corpuscular Volume 88.1 FL (87-102); Mean Platelet Volume 9.8 FL (9.6-12.0); Monocytes % 8.1 % (1.7-12.7); Neutrophils % 74.2 % (38.7-73.9); Platelet Count 108 T/CUMM (130-400); Red Blood Count 3.86 MC/CUMM (3.8-5.5); Red Cell Distribution Width 12.9 % (9.3-17.3); White Blood Count 7.9 T/CUMM (4-12)
[2019-04-03] MEDS: DUTASTERIDE 0.5 MG CAPSULE PO SCH (08:18)
[2019-04-03] MEDS: TAMSULOSIN 0.4 MG CAPSULE PO SCH ×2 (08:18→21:53)
[2019-04-03] MEDS: PANTOPRAZOLE 40 MG TABLET PO SCH (08:18)
[2019-04-03] MEDS: INSULIN REGULAR 100 UNIT/ML SUBCUT SCH ×4 (08:18→23:13)
[2019-04-03] MEDS: CHOLECALCIFEROL 1,000 UNIT TABLET PO SCH (08:18)
[2019-04-03] MEDS: LINACLOTIDE 145 MCG CAPSULE PO SCH (08:18)
[2019-04-03] MEDS: PROMETHAZINE 25 MG TABLET PO PRN (17:40)
[2019-04-03] MEDS: ENOXAPARIN 30 MG/0.3 ML SYRINGE SUBCUT SCH (17:41)
[2019-04-03] MEDS: POLYETHYLENE GLYCOL POWDER 17 GM PACK PO SCH (21:53)
[2019-04-03] MEDS: SIMVASTATIN 40 MG TABLET PO SCH (21:54)
[2019-04-03] MEDS: DOCUSATE/SENNA 50-8.6 MG TABLET PO SCH (21:54)
[2019-04-03] MEDS: LEVOFLOXACIN INJ 750 MG in PREMIX 1 EACH IV SCH (21:57)
[2019-04-04] MEDS: ALBUTEROL/IPRATROPIUM 3 ML NEB RESP TX SCH ×4 (01:07→20:14)
[2019-04-04] MEDS: PROMETHAZINE 25 MG TABLET PO PRN (04:39)
[2019-04-04] MEDS: LEVOTHYROXINE 88 MCG TABLET PO SCH (05:57)
[2019-04-04] MEDS: HYDROmorphone 2 MG TABLET PO SCH ×4 (05:57→22:37)
[2019-04-04 06:03] LABS: Calcium 8.4 MG/DL (8.5-10.1); Osmolality,Calculated 275.8 MOS/KG (273-304)
[2019-04-04] MEDS: INSULIN REGULAR 100 UNIT/ML SUBCUT SCH ×4 (08:12→21:48)
[2019-04-04] MEDS ORDERED: BISACODYL 10 MG SUPP RECTAL ONE (10:15)
[2019-04-04] MEDS: POLYETHYLENE GLYCOL POWDER 17 GM PACK PO SCH ×3 (11:16→22:32)
[2019-04-04] MEDS: PANTOPRAZOLE 40 MG TABLET PO SCH (11:17)
[2019-04-04] MEDS: AZITHROMYCIN 250 MG TABLET PO SCH (11:17)
[2019-04-04] MEDS: CHOLECALCIFEROL 1,000 UNIT TABLET PO SCH (11:17)
[2019-04-04] MEDS: DUTASTERIDE 0.5 MG CAPSULE PO SCH (11:17)
[2019-04-04] MEDS: LINACLOTIDE 145 MCG CAPSULE PO SCH (11:18)
[2019-04-04] MEDS: DOCUSATE/SENNA 50-8.6 MG TABLET PO SCH ×2 (11:18→22:31)
[2019-04-04] MEDS: TAMSULOSIN 0.4 MG CAPSULE PO SCH ×2 (11:18→22:31)
[2019-04-04] MEDS: SODIUM CHLORIDE 0.9% 1,000 ML IV SCH ×2 (11:22→17:10)
[2019-04-04] MEDS: ENOXAPARIN 30 MG/0.3 ML SYRINGE SUBCUT SCH (17:10)
[2019-04-04] MEDS: PSYLLIUM POWDER 3.7 GM/PACK PO PRN (22:30)
[2019-04-04] MEDS: SIMVASTATIN 40 MG TABLET PO SCH (22:31)
[2019-04-05] MEDS: ALBUTEROL/IPRATROPIUM 3 ML NEB RESP TX SCH ×4 (01:21→18:50)
[2019-04-05] MEDS: SODIUM CHLORIDE 0.9% 1,000 ML IV SCH (06:20)
[2019-04-05] MEDS: HYDROmorphone 2 MG TABLET PO SCH ×2 (06:20→16:39)
[2019-04-05] MEDS: LEVOTHYROXINE 88 MCG TABLET PO SCH (06:20)
[2019-04-05] MEDS: INSULIN REGULAR 100 UNIT/ML SUBCUT SCH ×4 (10:20→20:39)
[2019-04-05] MEDS: DUTASTERIDE 0.5 MG CAPSULE PO SCH (10:32)
[2019-04-05] MEDS: PANTOPRAZOLE 40 MG TABLET PO SCH (10:32)
[2019-04-05] MEDS: POLYETHYLENE GLYCOL POWDER 17 GM PACK PO SCH ×3 (10:32→23:21)
[2019-04-05] MEDS: LINACLOTIDE 145 MCG CAPSULE PO SCH (10:32)
[2019-04-05] MEDS: DOCUSATE/SENNA 50-8.6 MG TABLET PO SCH ×2 (10:32→23:20)
[2019-04-05] MEDS: TAMSULOSIN 0.4 MG CAPSULE PO SCH (10:32)
[2019-04-05] MEDS: CHOLECALCIFEROL 1,000 UNIT TABLET PO SCH (10:33)
[2019-04-05 10:39] LABS: Basophils # 0.1 10*3/uL (0.0-0.2); Basophils % 0.6 % (0.0-0.8); Eosinophils # 0.3 10*3/uL (0.0-0.87); Eosinophils % 4.1 % (0.00-10.9); Hematocrit 37.9 VOL% (42.0-52.0); Hemoglobin 12.3 GM/DL (14.0-18.0); Immature Granulocytes Absolute 0.16 #; Lymphocytes # 0.7 10*3/uL (1.4-4.0); Lymphocytes % 8.8 % (21.2-54.2); Mean Corpuscular HGB Conc 32.5 GM/DL (32-36); Mean Corpuscular Volume 90.2 FL (87-102); Mean Platelet Volume 9.9 FL (9.6-12.0); Monocytes % 7.9 % (1.7-12.7); Neutrophils % 76.6 % (38.7-73.9); Platelet Count 129 T/CUMM (130-400); Red Cell Distribution Width 12.7 % (9.3-17.3)
[2019-04-05] MEDS: PIPERACILLIN/TAZOBACTAM 3,375 MG in SODIUM CHLORIDE 0.9% 100 ML IV SCH ×2 (10:48→19:06)
[2019-04-05 10:57] LABS: Albumin 2.9 G/DL (3.4-5.0); Bilirubin,Total 0.6 MG/DL (0.2-1.0); Calcium 8.5 MG/DL (8.5-10.1); Osmolality,Calculated 278.7 MOS/KG (273-304); Total Protein 6.5 G/DL (6.4-8.3)
[2019-04-05] MEDS: LEVOFLOXACIN INJ 750 MG in PREMIX 1 EACH IV SCH (23:16)
[2019-04-05] MEDS: SIMVASTATIN 40 MG TABLET PO SCH (23:20)
[2019-04-06] MEDS: ALBUTEROL/IPRATROPIUM 3 ML NEB RESP TX SCH ×4 (00:31→20:37)
[2019-04-06] MEDS: PIPERACILLIN/TAZOBACTAM 3,375 MG in SODIUM CHLORIDE 0.9% 100 ML IV SCH ×3 (03:26→17:35)
[2019-04-06 05:16] LABS: Basophils % 0.4 % (0.0-0.8); Eosinophils # 0.4 10*3/uL (0.0-0.87); Eosinophils % 4.4 % (0.00-10.9); Hematocrit 34.5 VOL% (42.0-52.0); Hemoglobin 11.7 GM/DL (14.0-18.0); Immature Granulocytes % 1.8 %; Immature Granulocytes Absolute 0.15 #; Lymphocytes # 0.8 10*3/uL (1.4-4.0); Lymphocytes % 9.8 % (21.2-54.2); Mean Corpuscular HGB Conc 33.9 GM/DL (32-36); Mean Corpuscular Volume 87.3 FL (87-102); Mean Platelet Volume 9.9 FL (9.6-12.0); Monocytes % 9.1 % (1.7-12.7); Neutrophils % 74.5 % (38.7-73.9); Platelet Count 160 T/CUMM (130-400); Red Blood Count 3.95 MC/CUMM (3.8-5.5); Red Cell Distribution Width 12.2 % (9.3-17.3); White Blood Count 8.5 T/CUMM (4-12)
[2019-04-06] MEDS: LEVOTHYROXINE 88 MCG TABLET PO SCH (05:21)
[2019-04-06 05:40] LABS: Calcium 8.4 MG/DL (8.5-10.1); Osmolality,Calculated 282.3 MOS/KG (273-304)
[2019-04-06] MEDS: INSULIN REGULAR 100 UNIT/ML SUBCUT SCH ×4 (08:29→21:00)
[2019-04-06] MEDS: LINACLOTIDE 145 MCG CAPSULE PO SCH (09:50)
[2019-04-06] MEDS: DOCUSATE/SENNA 50-8.6 MG TABLET PO SCH ×2 (09:51→21:00)
[2019-04-06] MEDS: POLYETHYLENE GLYCOL POWDER 17 GM PACK PO SCH ×3 (09:51→21:00)
[2019-04-06] MEDS: DUTASTERIDE 0.5 MG CAPSULE PO SCH (09:51)
[2019-04-06] MEDS: PANTOPRAZOLE 40 MG TABLET PO SCH (09:51)
[2019-04-06] MEDS: AZITHROMYCIN 250 MG TABLET PO SCH (09:52)
[2019-04-06] MEDS: CHOLECALCIFEROL 1,000 UNIT TABLET PO SCH (09:52)
[2019-04-06] MEDS ORDERED: PROPOFOL 200 MG/20 ML VIAL IV ONE (11:37)
[2019-04-06] MEDS ORDERED: SEVOFLURANE 1 UNIT/15 MINUTE INH ONE (11:38)
[2019-04-06] MEDS ORDERED: SUCCINYLCHOLINE 200 MG/10 ML VIAL ONE (11:38)
[2019-04-06] MEDS ORDERED: MIDAZOLAM 2 MG/2 ML VIAL ONE (11:38)
[2019-04-06] MEDS ORDERED: PHENYLEPHRINE 1 MG/10 ML SYRINGE IV ONE (11:38)
[2019-04-06] MEDS ORDERED: ROCURONIUM 100 MG/10 ML VIAL IV ONE (11:38)
[2019-04-06] MEDS ORDERED: LIDOCAINE 2% 5 ML VIAL ONE (11:38)
[2019-04-06] MEDS ORDERED: ONDANSETRON 4 MG/2 ML VIAL ONE (11:43)
[2019-04-06] MEDS: ONDANSETRON 4 MG/2 ML VIAL IV PRN ×2 (11:44→16:22)
[2019-04-06] MEDS: SODIUM CHLORIDE 0.9% 1,000 ML IV SCH ×2 (12:34→12:35)
[2019-04-06] MEDS: BELLADONNA/OPIUM 30 MG SUPP RECTAL PRN ×2 (17:36→21:38)
[2019-04-06] MEDS: SIMVASTATIN 40 MG TABLET PO SCH (21:00)
[2019-04-06] MEDS: MORPHINE 4 MG/1 ML VIAL IV PRN (23:37)
[2019-04-07] MEDS: ALBUTEROL/IPRATROPIUM 3 ML NEB RESP TX SCH ×4 (00:56→20:32)
[2019-04-07] MEDS: PIPERACILLIN/TAZOBACTAM 3,375 MG in SODIUM CHLORIDE 0.9% 100 ML IV SCH ×3 (01:49→17:27)
[2019-04-07 04:55] LABS: Basophils # 0.1 10*3/uL (0.0-0.2); Basophils % 0.6 % (0.0-0.8); Eosinophils # 0.3 10*3/uL (0.0-0.87); Hematocrit 37.8 VOL% (42.0-52.0); Hemoglobin 12.3 GM/DL (14.0-18.0); Immature Granulocytes % 1.8 %; Immature Granulocytes Absolute 0.16 #; Lymphocytes # 0.9 10*3/uL (1.4-4.0); Lymphocytes % 10.3 % (21.2-54.2); Mean Corpuscular HGB Conc 32.5 GM/DL (32-36); Mean Corpuscular Volume 88.9 FL (87-102); Mean Platelet Volume 9.7 FL (9.6-12.0); Monocytes % 8.9 % (1.7-12.7); Neutrophils % 75.4 % (38.7-73.9); Platelet Count 196 T/CUMM (130-400); Red Blood Count 4.25 MC/CUMM (3.8-5.5); Red Cell Distribution Width 12.5 % (9.3-17.3); White Blood Count 8.7 T/CUMM (4-12)
[2019-04-07 05:19] LABS: Calcium 8.6 MG/DL (8.5-10.1)
[2019-04-07] MEDS: SODIUM CHLORIDE 0.9% 1,000 ML IV SCH ×3 (07:35→21:40)
[2019-04-07] MEDS: LEVOTHYROXINE 88 MCG TABLET PO SCH (07:35)
[2019-04-07] MEDS: LINACLOTIDE 145 MCG CAPSULE PO SCH (07:35)
[2019-04-07] MEDS: INSULIN REGULAR 100 UNIT/ML SUBCUT SCH ×4 (07:38→22:39)
[2019-04-07] MEDS: MORPHINE 4 MG/1 ML VIAL IV PRN (07:43)
[2019-04-07] MEDS: DUTASTERIDE 0.5 MG CAPSULE PO SCH (09:29)
[2019-04-07] MEDS: CHOLECALCIFEROL 1,000 UNIT TABLET PO SCH (09:30)
[2019-04-07] MEDS: DOCUSATE/SENNA 50-8.6 MG TABLET PO SCH ×2 (09:30→21:38)
[2019-04-07] MEDS: PANTOPRAZOLE 40 MG TABLET PO SCH (09:30)
[2019-04-07] MEDS: POLYETHYLENE GLYCOL POWDER 17 GM PACK PO SCH ×3 (09:30→21:38)
[2019-04-07] MEDS: ENOXAPARIN 30 MG/0.3 ML SYRINGE SUBCUT SCH (12:31)
[2019-04-07] MEDS: SIMVASTATIN 40 MG TABLET PO SCH (21:38)
[2019-04-08] MEDS: ALBUTEROL/IPRATROPIUM 3 ML NEB RESP TX SCH ×2 (00:28→07:53)
[2019-04-08] MEDS: PIPERACILLIN/TAZOBACTAM 3,375 MG in SODIUM CHLORIDE 0.9% 100 ML IV SCH ×2 (03:25→10:39)
[2019-04-08 05:33] LABS: Basophils # 0.1 10*3/uL (0.0-0.2); Basophils % 0.9 % (0.0-0.8); Eosinophils # 0.3 10*3/uL (0.0-0.87); Eosinophils % 5.8 % (0.00-10.9); Hemoglobin 11.2 GM/DL (14.0-18.0); Immature Granulocytes % 2.5 %; Immature Granulocytes Absolute 0.14 #; Lymphocytes % 17.7 % (21.2-54.2); Mean Corpuscular HGB Conc 32.9 GM/DL (32-36); Mean Corpuscular Volume 88.8 FL (87-102); Monocytes % 10.2 % (1.7-12.7); Neutrophils % 62.9 % (38.7-73.9); Platelet Count 172 T/CUMM (130-400); Red Blood Count 3.83 MC/CUMM (3.8-5.5); Red Cell Distribution Width 12.3 % (9.3-17.3); White Blood Count 5.7 T/CUMM (4-12)
[2019-04-08 06:01] LABS: Calcium 8.1 MG/DL (8.5-10.1); Osmolality,Calculated 281.3 MOS/KG (273-304)
[2019-04-08] MEDS: LEVOTHYROXINE 88 MCG TABLET PO SCH (07:19)
[2019-04-08 07:36] VITALS: BP 124/69
[2019-04-08] MEDS: DUTASTERIDE 0.5 MG CAPSULE PO SCH (10:35)
[2019-04-08] MEDS: DOCUSATE/SENNA 50-8.6 MG TABLET PO SCH (10:36)
[2019-04-08] MEDS: LINACLOTIDE 145 MCG CAPSULE PO SCH ×2 (10:36→10:38)
[2019-04-08] MEDS: INSULIN REGULAR 100 UNIT/ML SUBCUT SCH ×2 (10:36→13:34)
[2019-04-08] MEDS: PANTOPRAZOLE 40 MG TABLET PO SCH (10:36)
[2019-04-08] MEDS: POLYETHYLENE GLYCOL POWDER 17 GM PACK PO SCH (10:36)
[2019-04-08] MEDS: CHOLECALCIFEROL 1,000 UNIT TABLET PO SCH (10:36)
[2019-04-08] MEDS: AZITHROMYCIN 250 MG TABLET PO SCH (10:36)
[2019-04-08] MEDS: ENOXAPARIN 30 MG/0.3 ML SYRINGE SUBCUT SCH (13:34)
== END 2019-04-08 14:31 | disposition home or self-care (01) | DRG 853 ==
LOC: N.ED 18:30 → SUATTDRO 22:04 → N.EDINP 22:04 → N.5E 22:39
PROVIDERS: ADMIT Internal Medicine; ATTEND Emergency Medicine